=== PATIENT | male | born 1945 | race Caucasian/White ===

== ENCOUNTER → 2023-10-23 13:43 | Outpatient (CLI) | payer MEDICARE, SELFPAY | LOC: PHYS 13:50 | PROVIDERS: Family Provider Physician Assistant; PCP Physician Assistant; Referring Provider Physician Assistant; Visit Provider Physician Assistant | DX: R20.0 Anesthesia of skin (principal) | CPT/HCPCS: 95886; 95912 ==

== ENCOUNTER → 2024-05-13 09:43 | Outpatient (CLI) | payer MEDICARE, SELFPAY | LOC: PHYS 09:44 | PROVIDERS: Family Provider Physician Assistant; PCP Physician Assistant; Referring Provider Physician Assistant; Visit Provider Physician Assistant | DX: G60.9 Hereditary and idiopathic neuropathy, unspecified (principal) | CPT/HCPCS: 95886; 95910 ==